=== PATIENT | female | born 1945 | race Caucasian/White ===

== ENCOUNTER 2018-11-03 07:56 | Emergency (ER) | payer OTHER, SELFPAY ==
[2018-11-03 08:01] VITALS: BP 143/75; PULSE 71; RESP 16; TEMP 36.6; O2SAT 97
--- NOTE | 2018-11-03 08:17 | ED.GENADUL_ITS ---
Discharge Plan Disposition Patient Disposition: HOME Condition: Improving Discharge Details Chief Complaint: Orthopedic Clinical Impression: Fracture of left radius and ulna Primary Care Provider: Arturo Castorena ED Provider: Mike Bang Discharge Instructions Instructions: Arm Fracture in Adults (ED) Additional Instructions: Return or seek immediate evaluation if you develop cold, blue, numbness or tingling of the fingertips. You will need to be seen by orthopedics in the next 5 to 7 days time. Please call the [place] [facility] on Monday or Monday to to begin referral process. Ice and elevation to reduce pain and discomfort. May use Tylenol and/or ibuprofen. Continue all regular medications. Medical Decision Making 73-year-old female who tripped and fell last night while trying to go to the bathroom. She lives in [facility] and is followed at the [facility]. She suffered left wrist pain with deformity and tenderness on exam. She is somewhat amnestic to the event and describes a small area of tenderness on her scalp which has an unremarkable exam. No other thoracic, abdominal, other extremity injury on exam. Referred for CT scan of the head and left wrist x-ray are notable for comminuted left distal radius fracture with impaction. She remains with normal motor and sensory exam. Placed in sugar tong splint. Given instructions for urgent follow-up, she is heading to [place] and will be seen/contact primary care on Monday to be followed up with orthopedics. Given copies of readings as well as images. Stable for discharge at this time HPI General Mode of arrival: ambulatory . Date/Time Provider Initiated Documentation: 11/03/18 08:03 . Limitations to Documentation: no limitations . Information obtained by: patient and family . History of Present Illness 73 year old F presents to the emergency department with the chief complaint of wrist pain/ fall, described as moderate, Quality is described as dull and constant, and is localized to the left and upper extremity. Patient reports no radiation. Patient started experiencing this hour(s) and it has been constant. Rest improves symptom(s), Movement worsens symptoms . Patient notes no other symptoms.. Patient did receive the following treatments prior to arrival, none and NSAID Related Data Allergies Allergy/AdvReac Type Severity Reaction Status Date / Time No Known Allergies Allergy Unverified 11/03/18 08:04 General Stated Complaint: Orthopedic JOSÉ MIGUEL: 4 Review of Systems Review of Systems 6 systems reviewed and otherwise negative. No sniffing and headache, neck pain, back pain, abdominal pain, other extremity injury. [facility] Medical History Hyperlipidemia [facility] Surgical History Biopsy, Soft Tissue (01/13/16) Left Thyroid Nodule FNA wrist fracture Left Exam Narrative Exam Narrative: GEN: awake, alert, oriented 3. Pleasant, well groomed, interactive. HEAD: Normocephalic, atraumatic ENT: Mucous membranes moist, oropharynx unremarkable, External ear exam unremarkable EYES: PERRL, EOMI NECK: Full ROM, no WM, no menigismus, nontender, no step-off or deformity. Back exam is without tenderness or deformity CHEST/RESP: Nontender, clear to auscultation bilateral, no wheeze/rhonchi/rales CARDIOVASCULAR: RRR, no murmur, rub alyce. 2+ Rad pulse bilateral ABDOMEN: Soft, nontender, no mass. +Bowel sounds EXT: Full ROM, 2+ radial pulse bilaterally. All motor and sensory testing is normal. The left distal radius/proximal carpal bones have overlying dorsal deformity, tenderness, swelling. Neuro: Grossly normal neurologic exam, conversant, interactive. Psych: Speech fluent, thoughts congruent, affect normal Course Vital Signs Temperature 36.6 C 11/03/18 08:01 Pulse 71 11/03/18 08:01 Respiratory Rate 16 11/03/18 08:01 Blood Pressure 143/75 H 11/03/18 08:01 Pulse Oximetry 97 11/03/18 08:01 Temperature 36.6 C 11/03/18 08:01 Temperature Source Skin 11/03/18 08:01 Pulse 71 11/03/18 08:01 Respiratory Rate 16 11/03/18 08:01 Respiratory Effort 11/03/18 08:01 Blood Pressure 143/75 H 11/03/18 08:01 Blood Pressure Position Sitting 11/03/18 08:01 Pulse Oximetry 97 11/03/18 08:01 Oxygen Delivery Method Room Air 11/03/18 08:01 Oxygen Flow Rate 0 11/03/18 08:01 Pain Level 2 11/03/18 08:15 Procedures Orthopedic Splinting/Casting Injury #1: Side: left Upper Extremity Injury Location: wrist Upper Extremity Immobilizer: sugartong splint
--- NOTE | 2018-11-03 08:39 | DI.COMBO_ITS ---
SYMPTOM/DIAGNOSIS: S/P FALL, WRIST PAIN, AMNESTIC LEFT WRIST: Three views were obtained. There is a comminuted, moderately displaced fracture of the distal radius which extends through the articular surface. There is an associated ulnar styloid fracture. No other fracture is seen. NONCONTRAST HEAD CT: A noncontrast cranial CT was performed. There is moderate generalized cerebral atrophy. There is no evidence of acute intracranial hemorrhage, mass effect or midline shift. The orbital and temporal bone structures appear intact. Mastoid air cells and paranasal sinuses appear well aerated. CONCLUSION: No evidence of acute intracranial process.
--- NOTE | 2018-11-03 08:46 | DI.VRAD_ITS ---
EXAM: CT Head Without Contrast EXAM DATE/TIME: 11/03/2018 8:20 AM CLINICAL HISTORY: 73 years old, female; Injury or trauma; Fall; Injury history: Amnestic TECHNIQUE: Imaging protocol: Computed tomography of the head without contrast. COMPARISON: No relevant prior studies available. FINDINGS: Brain: There is no acute intracranial hemorrhage. There is lucency in the cerebral white matter, likely microvascular disease although non-specific. Winston white differentiation is intact. There are no extra-axial fluid collections. No evidence of mass. There is no mass effect or midline shift. Ventricles: The ventricles and sulci are enlarged, consistent with volume loss / atrophy. No hydrocephalus. Bones/joints: No acute fracture. Sinuses: There is no significant mucosal thickening in paranasal sinuses. No air-fluid levels. Mastoid air cells: No significant mastoid effusion. Soft tissues: There are areas of soft tissue swelling in the left lateral scalp. Vasculature: There is vascular calcification. IMPRESSION: 1. No evidence of acute intracranial abnormality. No evidence of acute infarction, hemorrhage, or mass. 2. Atrophy and microvascular disease. Dictated and Authenticated by: Dalila Zapata MD. Ordering:MARCEL Mckeon MD
--- NOTE | 2018-11-03 08:48 | DI.VRAD_ITS ---
EXAM: XR Left Wrist EXAM DATE/TIME: 11/03/2018 8:40 AM CLINICAL HISTORY: 73 years old, female; Other: Fall pain TECHNIQUE: Imaging protocol: XR Left wrist. Views: 3 or more views. COMPARISON: No relevant prior studies available. FINDINGS: Bones/joints: There is a comminuted fracture of distal radius with impaction, mild dorsal angulation, mild displacement, and intra-articular extension. There is a comminuted and displaced fracture of the ulnar styloid. Degenerative changes are noted between proximal and distal carpal rows along the radial aspect, and at the first carpometacarpal joint. Soft tissues: There is diffuse soft tissue swelling at the wrist. IMPRESSION: Comminuted impacted intra-articular fracture distal radius. Ulnar styloid fracture. Dictated and Authenticated by: Dalila Zapata MD. Ordering:MARCEL Mckeon MD
== END 2018-11-03 09:26 | disposition home or self-care (01) ==
LOC: ER 09:39
PROVIDERS: Emergency Provider Emergency Medicine; PCP General Practice
DX: S52.572A Other intraarticular fracture of lower end of left radius, initial encounter for closed fracture (principal); S52.612A Displaced fracture of left ulna styloid process, initial encounter for closed fracture; W10.8XXA Fall (on) (from) other stairs and steps, initial encounter
CPT/HCPCS: 25600; 99284; 70450; 73110; 99283; L3650

== ENCOUNTER 2018-11-05 11:33 | Emergency (ER) | payer OTHER, SELFPAY ==
[2018-11-05 11:42] VITALS: BP 146/81; PULSE 69; RESP 16; TEMP 36; O2SAT 98
[2018-11-05 12:13] VITALS: RESP 16
--- NOTE | 2018-11-05 12:51 | W.ED.GENAD ---
Discharge Plan Disposition Patient Disposition: HOME Condition: Improving Discharge Details Chief Complaint: Dizzy/Sync Clinical Impression: Dizziness, Orthopedic aftercare Primary Care Provider: Arturo Castorena ED Provider: Elizabet Luther Home Meds and New Rx's Prescriptions: Continued glucosamine-chondroitin [Osteo Bi-Flex] 250-200 mg Tablet 1 tab PO DAILY RF: 0 Discharge Instructions Instructions: Splint Care (ED), Dizziness (ED) Additional Instructions: Drink plenty of fluids and get plenty of rest. Alternate tylenol and motrin as needed and directed for pain. Rest, ice, and elevate your left arm as much as possible. Follow-up with orthopedist in [place] for further evaluation and plan regarding your wrist fracture. Return to the emergency department at any time with any worsening or new concerning symptoms. Discharge Data Discharge Date/Time-TO BE ENTERED AT DEPARTURE: 11/05/18 17:53 Discharge Physician: Elizabet Luther Medical Decision Making 1145 -- 73-year-old female who is 2 days status post left wrist fracture who presents with multiple episodes of dizziness today as well as a sensation that her left wrist splint is too tight. Patient appears to have possible early dementia and provides some history. Vitals within normal limits. She denies any symptoms at present. Her left hand is mild to moderately edematous, normal cap refill, mild color temperature of left hand compared to right. EKG notes a rate of 67, sinus with [address] depression in 2, aVF, V5 and V6 and [address] depression in V4. No acute ST elevation. Patient is from [place]. No old EKGs on file to compare. Patient states she has had an EKG with Dr. Castorena before. Differential diagnosis includes dehydration, electrolyte abnormality, arrhythmia, ACS, PE. Will check screening labs, give fluids, chest x-ray. 1330 -- Labs and imaging reviewed. D dimer 1804. Trop negative. Unable to obtain an EKG from Dr. Castorena's office. Will send for CT chest. Will attempt to obtain EKG from pt's last visit at [facility] in [place], [place]. 1700 -- Unable to obtain EKG from [facility] in [facility]. Repeat EKG slightly improved in degree of ST depression. No ST elevation. Pt denies any further dizziness and she is requesting to go home. Discussed with patient that her EKG findings may not be new and that as she has no complaint of chest pain, shortness of breath, and her dizziness is much improved, would recommend that she follow-up with her primary care doctor for reevaluation and for referral for outpatient stress test if her symptoms return or she has development of chest pain or shortness of breath. Her Ortho glass splint was removed and a volar splint was placed and she felt much more comfortable. She is advised to call her orthopedist tomorrow to schedule a follow-up appointment for reevaluation. She is advised to return here with any worsening or new concerning symptoms. Medical Records Medical records reviewed: Yes I reviewed the patient's medical records. Imaging Data Radiologic Study: Radiologist's impression: PORTABLE AP CHEST at 1342 hours: The heart is not enlarged. The lungs appear grossly clear with some mild prominence of reticular markings which is nonspecific. No pleural effusion is seen. CONCLUSION: No evidence of acute process. CTA CHEST: CT angiography was performed with multi slice acquisition and multi planar and 3D reconstruction. CT angiography of the chest was performed with a bolus infusion of 60 cc of Omnipaque 350. Images obtained through the upper abdomen show unremarkable appearance of visualized portions of the liver, spleen, adrenals and kidneys. No thoracic aortic aneurysm or dissection. No pulmonary embolic disease. No mediastinal or hilar mass or adenopathy. Tracheobronchial tree appears intact. 2-3 mm intrapulmonary nodules noted bilaterally, no larger nodule or consolidation seen. Tracheobronchial tree appears intact. CONCLUSION: No evidence of pulmonary embolic disease. No significant findings. Lab Data Lab results reviewed: Yes I reviewed the patient's lab results. Laboratory Tests Range/Units 11/05/18 11/05/18 11/05/18 12:30 12:55 12:55 WBC (4.4-10.8) k/cumm 6.48 RBC (4.00-5.20) m/cumm 4.15 Hgb (12.0-15.5) g/dL 13.5 Hct (36.0-46.0) % 38.7 MCV (80-95) fL 93.3 MCH (27.0-33.0) pg 32.5 MCHC (32.0-36.0) g/dL 34.9 RDW (11.7-14.6) % 12.0 Plt Count (130-400) x1000/uL 222 MPV (8.0-11.0) fL 10.0 Immature Gran % 0.3 Neutrophils % 66.2 Lymphocytes % 21.6 Monocytes % 10.0 Eosinophils % 1.4 Basophils % 0.5 Absolute Neutrophils (1.2-6.7) k/cumm 4.29 Absolute Lymphocytes (1.2-3.4) k/cumm 1.40 Absolute Monocytes (0.11-0.7) k/cumm 0.65 Absolute Eosinophils (0.0-0.7) k/cumm 0.09 Absolute Basophils (0.0-0.2) k/cumm 0.03 D-Dimer (<500) ng/mlFEU 1804 H Sodium (136-145) mmol/L 141 Potassium (3.5-5.1) mmol/L 3.7 Chloride (98-107) mmol/L 104 Carbon Dioxide (21.0-32.0) mmol/L 25.4 Anion Gap (3-11) mmol/L 11.6 H BUN (7-18) mg/dL 12 Creatinine (0.55-1.02) mg/dL 0.85 Estimated GFR/1.73 m2 (mL/min/1.73m2) >= 60.00 Glucose (70-100) mg/dL 95 Calcium (8.5-10.1) mg/dL 9.0 Magnesium (1.8-2.4) mg/dL 1.9 Total Bilirubin (0.2-1.0) mg/dL 0.7 AST (15-37) U/L 41 H ALT (14-59) U/L 50 Alkaline Phosphatase (46-116) U/L 79 Troponin I (0.00-0.06) ng/mL < 0.05 Total Protein (6.4-8.2) g/dL 7.2 Albumin (3.4-5.0) g/dL 4.0 ECG Data Attestation: I personally reviewed and interpreted this ECG (s) as follows: Interpretation: # 1 -- Rate of 67, sinus, [address] depression in 2, aVF, V5 and V6. [address] depression in V4. No acute ST elevation. RI 146. QTc 426. QRS 92. # 2 -- Rate of 60, sinus, [address] depression in 2, V3, V4, V5 and V6. No acute ST elevation. RI 140. QTc 426. QRS 90. HPI General Mode of arrival: ambulatory. Date/Time Provider Initiated Documentation: 11/05/18 11:49. Limitations to Documentation: no limitations. Information obtained by: patient and family. HPI Narrative: Patient is a 73-year-old female with a history of hyperlipidemia who sustained a left wrist fracture 2 days ago who presents for multiple episodes of dizziness today. Patient appears to have possible early dementia and provides some history. He states that patient complained of dizziness approximately 10 times today usually well sitting. Denies any fever, headache, neck pain, chest pain, shortness of breath, abdominal pain, visual changes, nausea or vomiting. She denies any dizziness at present. She states it was more of a lightheaded sensation rather than spinning. She also states that her left forearm splint is too tight and she feels that it needs to be removed. She states she has had progressively worsening swelling of the fingers of her left hand in addition to they feel colder than the right hand. Related Data Home Medications Medication Instructions Recorded Confirmed glucosamine-chondroitin [Osteo 1 tab PO DAILY 11/03/18 11/05/18 Bi-Flex] Allergies Allergy/AdvReac Type Severity Reaction Status Date / Time No Known Allergies Allergy Unverified 11/05/18 13:25 General Stated Complaint: Dizzy/Sync JOSÉ MIGUEL: 3 Review of Systems Review of Systems All systems reviewed & are unremarkable except as noted in HPI and below Constitutional Reports as per HPI, Denies chills and Denies fever(s) Eyes Denies blurry vision ENT Reports dizziness, Denies sore throat and Denies throat swelling Cardiovascular Denies chest pain and Denies dyspnea Respiratory Denies cough and Denies dyspnea Gastrointestinal Denies abdominal pain, Denies diarrhea and Denies vomiting Genitourinary Denies hematuria and Denies dysuria Musculoskeletal Denies back pain and Denies numbness Integumentary/Breasts Denies lesions and Denies rash Neurologic Reports dizziness, Denies focal weakness and Denies numbness Allergic/Immunologic Denies throat swelling PFSH Medical History Hyperlipidemia Zoster Surgical History Biopsy, Soft Tissue (01/13/16) Left Thyroid Nodule FNA wrist fracture Left Social History Smoking/Tobacco Use Status: Never Substance use type: does not use Do you feel safe at home: Yes Do you feel safe in your relationship?: Yes Exam Const General: cooperative, healthy appearing and no acute distress HENMT Head: normal to inspection Face and sinus: normal facial exam Eyes General: appearance normal, both eyes and all related structures Pupils: PERRL EOM: EOM intact bilaterally Neck Neck: normal visual inspection and No submandibular swelling Lymphatic: no lymphadenopathy noted Chest Chest: normal inspection of the chest and no tenderness Resp Effort & Inspection: normal respiratory effort and able to speak in complete sentences Auscultation: clear to auscultation bilaterally Cardio Rate: regular rate Rhythm: regular rhythm GI Inspection: normal to inspection Palpation: soft, not firm, not rigid and nontender Auscultation: normal bowel sounds Skin General skin exam: no rashes or lesions noted Neuro General: alert, awake and oriented x3 Cranial Nerves: CN's II-XI intact bilaterally Cognition: normal cognition Speech: speech normal Motor: muscle tone normal throughout and strength 5/5 throughout Sensory Exam: no sensory deficits noted Extrem Other: Left forearm in Ortho-Glass splint. There is mild to moderate edema of fingers of left hand which are cooler and temperature than right hand. Cap refill less than 2 seconds. She is able to move all of her fingers. Psych Appearance: grossly normal Mental Status: mental status grossly normal Speech and Movement: speech and movement normal Affect: normal affect Course Vital Signs Temperature 96.8 F L 11/05/18 11:42 Pulse 69 11/05/18 11:42 Respiratory Rate 16 11/05/18 11:42 Blood Pressure 146/81 H 11/05/18 11:42 Pulse Oximetry 98 11/05/18 11:42 Temperature 96.8 F L 11/05/18 11:42 Temperature Source Skin 11/05/18 11:42 Pulse 69 11/05/18 11:42 Respiratory Rate 16 11/05/18 12:13 Respiratory Effort Non-Labored 11/05/18 12:13 Respiratory Depth Normal 11/05/18 12:13 Respiratory Pattern Normal 11/05/18 12:13 Blood Pressure 146/81 H 11/05/18 11:42 Blood Pressure Position Sitting 11/05/18 11:42 Pulse Oximetry 98 11/05/18 11:42 Oxygen Delivery Method Room Air 11/05/18 11:42 Oxygen Flow Rate 0 11/05/18 11:42 Pain Level 0 11/05/18 11:42
[2018-11-05 13:04] LABS: Abs Immature Grans 0.02 k/cumm (0.0-0.09); Absolute Basophil Count 0.03 k/cumm (0.0-0.2); Absolute Eosinophil Count 0.09 k/cumm (0.0-0.7); Absolute Monocyte Count 0.65 k/cumm (0.11-0.7); Absolute Neutrophil Count 4.29 k/cumm (1.2-6.7); Basophils % 0.5; Eosinophils % 1.4; HCT 38.7 % (36.0-46.0); HGB 13.5 g/dL (12.0-15.5); Immature Grans % 0.3; Lymphocytes % 21.6; Mean Corp. HGB Concentration 34.9 g/dL (32.0-36.0); Mean Corpuscular Hemoglobin 32.5 pg (27.0-33.0); Mean Corpuscular Volume 93.3 fL (80-95); Neutrophils % 66.2; Platelet Count 222 x1000/uL (130-400); RBC 4.15 m/cumm (4.00-5.20); White Blood Cell Count 6.48 k/cumm (4.4-10.8)
[2018-11-05 13:19] LABS: ALT 50 U/L (14-59); AST 41 U/L (15-37); Alkaline Phosphatase 79 U/L (46-116); Anion Gap 11.6 mmol/L (3-11); BUN 12 mg/dL (7-18); Bilirubin, Total 0.7 mg/dL (0.2-1.0); CO2 25.4 mmol/L (21.0-32.0); CREATININE 0.85 mg/dL (0.55-1.02); Chloride 104 mmol/L (98-107); Glucose 95 mg/dL (70-100); Magnesium 1.9 mg/dL (1.8-2.4); Potassium 3.7 mmol/L (3.5-5.1); Sodium 141 mmol/L (136-145); Total Protein 7.2 g/dL (6.4-8.2)
[2018-11-05 13:22] LABS: Troponin I < 0.05 ng/mL (0.00-0.06)
--- NOTE | 2018-11-05 13:26 | DI.RAD_ITS ---
SYMPTOM/DIAGNOSIS: DIZZINESS PORTABLE AP CHEST at 1342 hours: The heart is not enlarged. The lungs appear grossly clear with some mild prominence of reticular markings which is nonspecific. No pleural effusion is seen. CONCLUSION: No evidence of acute process.
[2018-11-05] MEDS: Normal Saline 500 ML IV (13:36)
[2018-11-05 13:37] LABS: D-Dimer 1804 ng/mlFEU (<500)
--- NOTE | 2018-11-05 13:49 | DI.CT_ITS ---
SYMPTOMS/DIAGNOSIS: ELEVATED D-DIMER, DIZZINESS, ? PE CTA CHEST: CT angiography was performed with multi slice acquisition and multi planar and 3D reconstruction. CT angiography of the chest was performed with a bolus infusion of 60 cc of Omnipaque 350. Images obtained through the upper abdomen show unremarkable appearance of visualized portions of the liver, spleen, adrenals and kidneys. No thoracic aortic aneurysm or dissection. No pulmonary embolic disease. No mediastinal or hilar mass or adenopathy. Tracheobronchial tree appears intact. 2-3 mm intrapulmonary nodules noted bilaterally, no larger nodule or consolidation seen. Tracheobronchial tree appears intact. CONCLUSION: No evidence of pulmonary embolic disease. No significant findings.
[2018-11-05 17:52] VITALS: BP 146/81; PULSE 69; RESP 16; TEMP 36; O2SAT 98
== END 2018-11-05 17:53 | disposition home or self-care (01) ==
PROVIDERS: Emergency Provider Physician Assistant; PCP General Practice
DX: R42 Dizziness and giddiness (principal); Z46.89 Encounter for fitting and adjustment of other specified devices
CPT/HCPCS: 36415; 71275; 80053; 93005; 96360; 99285; 71045; 83735; 84484; 85025; 85379; 93010